=== PATIENT | male | born 1945 | race Hispanic/Latino ===

== ENCOUNTER → 2024-04-03 | Day surgery (SDC) | payer MEDICARE ==
[2024-03-26 15:33] LABS: BASOPHILS # (AUTO) 0.1 (0.0-0.1); LYMPHOCYTES # (AUTO) 1.4 (1.0-3.2); LYMPHOCYTES % 24.3 % (18.0-39.1); MEAN CORPUSCULAR HEMOGLOBIN 28.2 pg (28-32); MEAN CORPUSCULAR HGB CONC 32.5 g/dL (31-35); MEAN CORPUSCULAR VOLUME 86.8 fL (81-99); MONOCYTES # (AUTO) 0.5 (0.2-0.8); MONOCYTES % 8.9 % (4.4-11.3); NEUTROPHILS # (AUTO) 3.8 (2.1-6.9); NEUTROPHILS % 65.6 % (38.7-80.0); PLATELET COUNT 225 x10e3/uL (140-360); RED BLOOD COUNT 4.61 x10e6/uL (4.3-5.7); RED CELL DISTRIBUTION WIDTH 15.2 % (11.7-14.4); WHITE BLOOD COUNT 5.85 x10e3/uL (4.8-10.8)
[2024-03-26 19:16] LABS: HYPOCHROMASIA SLIGHT; LYMPHOCYTES % (MANUAL) 27 % (19-48); MONOCYTES % (MANUAL) 6 % (3.4-9.0); NEUTROPHILS % (MANUAL) 67 % (40-74); PLATELET ESTIMATE ADEQUATE; PLATELET MORPHOLOGY COMMENT NORMAL; RBC MORPHOLOGY COMMENT NORMAL
[~2024-04-03] MED LIST: AMLODIPINE BESYL5 MG PO; ATORVASTATIN CA20 MG PO; CEFTRIAXONE 1 GM VIAL ONE; EPHEDRINE SULFATE INJ 50 MG/ML VIAL ONE; FENTANYL CITRATE/PF 100MCG/2 ML INJ ONE; IOPAMIDOL 610MG/1ML 300 MG/ML VIAL IV ONE; LACTATED RINGER'S 1,000 ML ONE; LIDOCAINE HCL 2% LOCAL INJ 5 ML SDV VIAL INJ ONE; MULTI-VITAMIN1 EACH PO; ONDANSETRON HCL INJ 2MG/ML 2ML 2 MG/ML VIAL ONE; PLAQUENIL200 MG PO; PREDNISONE10 MG PO; PROPOFOL IV EMULSION 10 MG/ML 20 ML VIAL ONE; SEVOFLURANE INHAL SOLN 250 ML PEN BTL ONE
[2024-04-03 10:10] VITALS: BP 111/77; PULSE 90; RESP 16; O2SAT 97
== END | disposition home or self-care (01) ==
LOC: OR 05:40
PROVIDERS: ATTEND Urology
DX: Z46.6 Encounter for fitting and adjustment of urinary device (principal); N21.0 Calculus in bladder; N13.30 Unspecified hydronephrosis; N20.1 Calculus of ureter; N20.0 Calculus of kidney; N13.5 Crossing vessel and stricture of ureter without hydronephrosis; Z93.50 Unspecified cystostomy status; N39.0 Urinary tract infection, site not specified; N31.9 Neuromuscular dysfunction of bladder, unspecified; N40.1 Benign prostatic hyperplasia with lower urinary tract symptoms; R33.8 Other retention of urine; E78.5 Hyperlipidemia, unspecified; I69.351 Hemiplegia and hemiparesis following cerebral infarction affecting right dominant side; Z01.812 Encounter for preprocedural laboratory examination; Z01.818 Encounter for other preprocedural examination; I10 Essential (primary) hypertension; Z99.3 Dependence on wheelchair; Z79.899 Other long term (current) drug therapy
CPT/HCPCS: 36415; 52317; 52356; 74018; 74420; 85025; C1758; C1769; C2617; J0696; J2001; J2405; J2704; J3010; J7121; Q9967

== ENCOUNTER → 2024-04-17 | Day surgery (SDC) | payer MEDICARE ==
[~2024-04-17] MED LIST changes: -CEFTRIAXONE 1 GM VIAL ONE; +DEXAMETHASONE SOD PHOS INJ 4 MG/ML SDV ONE; -FENTANYL CITRATE/PF 100MCG/2 ML INJ ONE; -LACTATED RINGER'S 1,000 ML ONE
[2024-04-17] MEDS: LACTATED RINGER'S 1,000 ML ONE (08:09)
[2024-04-17] MEDS: GENTAMICIN 80MG/NS 100 ML 100 ML IV ONE (08:09)
[2024-04-17 10:10] VITALS: BP 110/72; PULSE 81; RESP 18; O2SAT 100
== END | disposition home or self-care (01) ==
LOC: OR 05:38
PROVIDERS: ATTEND Urology
DX: N20.1 Calculus of ureter (principal); Z46.6 Encounter for fitting and adjustment of urinary device; R33.9 Retention of urine, unspecified; Z43.5 Encounter for attention to cystostomy; I10 Essential (primary) hypertension; E78.5 Hyperlipidemia, unspecified; N39.0 Urinary tract infection, site not specified; N20.0 Calculus of kidney; Z99.3 Dependence on wheelchair; Z79.899 Other long term (current) drug therapy
CPT/HCPCS: 51710; 52352; 74420; 88300; C1758; C1769; J1100; J1580; J2001; J2405; J2704; J7121; Q9967